=== PATIENT | female | born 1945 | race American Indian/Alaskan Native ===

== ENCOUNTER 2018-07-03 10:37 | Inpatient (IN) | payer MEDICARE, BC, OTHER | END 2018-07-06 13:50 | LOC: ER 10:37 → ED HOLD 12:24 → ORTHO 4S 15:30 | PROC: 0QSD04Z Reposition Right Patella with Internal Fixation Device, Open Approach (ICD-10-PCS; principal; 2018-07-04 15:43) | DX: M80.861A Other osteoporosis with current pathological fracture, right lower leg, initial encounter for fracture (principal); S82.041A Displaced comminuted fracture of right patella, initial encounter for closed fracture ==